=== PATIENT | female | born 1990 | race Two or more races ===

== ENCOUNTER 2016-10-26 15:25 | Outpatient (CLI) | payer MEDICAID | END 2016-10-26 15:26 | disposition home or self-care (01) | DX: I10 Essential (primary) hypertension (principal); R80.9 Proteinuria, unspecified ==

== ENCOUNTER 2016-11-05 13:42 | Outpatient (CLI) | payer MEDICAID | END 2016-11-05 13:43 | disposition home or self-care (01) | DX: I10 Essential (primary) hypertension (principal) ==